=== PATIENT | male | born 1940 | race Caucasian/White ===

== ENCOUNTER 2018-02-22 09:38 | Day surgery (SDC) | payer MEDICARE, OTHER ==
[2018-02-17 09:14] VITALS: BMI 32.2
--- NOTE | 2018-02-21 10:11 | HP ---
HISTORY AND PHYSICAL CHIEF COMPLAINT: Right wrist pain. HISTORY OF PRESENT ILLNESS: The patient is a 77-year-old, left-hand dominant, retired male who presents with right wrist pain after an injury on February 14, 2018. He fell off a stepladder at home while cleaning his garage roof. He had no loss of consciousness. Initially, he was seen in the emergency room and placed in a splint. He denies previous injury. PAST MEDICAL HISTORY: Significant for anxiety, type 2 diabetes, reflux disease, hypercholesterolemia, arthritis, and prostate cancer. PAST SURGICAL HISTORY: Significant for hernia repair and colonoscopy. CURRENT MEDICATIONS: Aleve, aspirin, atorvastatin, Flomax, Glucotrol, Inderal, losartan, Prilosec, Xanax. ALLERGIES: SULFA. FAMILY HISTORY: Significant for cancer. SOCIAL HISTORY: Negative for current tobacco or alcohol use. REVIEW OF SYSTEMS: Sixteen point review of systems otherwise reviewed and is noncontributory. PHYSICAL EXAMINATION: On examination, the patient is approximately 5 foot 9, 218 pounds of endomorphic habitus. HEENT exam is nonfocal. Neck is supple. He is nontender about the right shoulder and elbow. He has full pronation and supination of the right forearm. On examination of the right wrist, he has moderate dorsal swelling. He is tender over the distal radius. He is nontender in the snuffbox. He has moderate digital stiffness. Light touch is distally intact. X-rays to include multiple views of the right wrist brought in with the patient show an extra-articular distal radius fracture with moderate dorsal angulation and comminution. IMPRESSION: 1. Right extra-articular distal radius fracture. 2. [id number]-xluzuulfg diabetes. RECOMMENDATIONS: I talked to the patient and his at length regarding his condition and treatment options. At this point, with the amount of initial angulation and comminution, I recommend proceeding with surgery. We will plan to proceed with open reduction and internal fixation of his right distal radius fracture. We will likely keep the patient for a 23-hour hold postoperatively. Risks and benefits were discussed at length in layman's terms. MMODL / IJN: [id number] /
[~2018-02-22 09:38] MED LIST: DEXAMETHASONE SOD PHOSPHATE 10 MG/ML 1 ML VIAL IV ONE; HYDROmorphone 0.5 MG/0.5 ML SYRINGE IVP PRN; LIDOCAINE 1% 20 ML VIAL (10MG/ML) FOR IV START INTRADERMA PRN; MIDAZOLAM 2 MG/2 ML VIAL IV PRN; ONDANSETRON ODT 4 MG TAB PO ONE; SCOPOLAMINE 1.5MG/72HR PATCH TRANSDERM ONE; ceFAZolin IN SWFI 2 GM/20 ML SYRINGE IVP ONE
[2018-02-22] MEDS: LACTATED RINGERS 1,000 ML IV SCH (11:13)
[2018-02-22] MEDS ORDERED: ONDANSETRON 4 MG/2 ML VIAL IVP ONE (11:26)
[2018-02-22] MEDS ORDERED: BUPIVACAINE (PF) 0.25% 30 ML VIAL SQ ONE (11:38)
[2018-02-22 11:46] LABS: Glucose,Whole Blood 136 mg/dL (75-99)
[2018-02-22] MEDS ORDERED: ePHEDrine SULFATE/0.9% NACL/PF 50 MG/5 ML SYRINGE IV ONE (11:55)
[2018-02-22] MEDS ORDERED: fentaNYL (PF) 50 MCG/ML 2 ML AMP ONE (11:55)
[2018-02-22] MEDS ORDERED: MIDAZOLAM 2 MG/2 ML VIAL ONE (11:55)
[2018-02-22] MEDS ORDERED: SUCCINYLCHOLINE CHLORIDE 100 MG/5 ML SYR IV ONE (11:55)
[2018-02-22] MEDS ORDERED: LIDOCAINE 1% INJ 10MG/ML (20 ML MDV) ONE (11:55)
[2018-02-22] MEDS ORDERED: PROPOFOL 10 MG/ML 20 ML VIAL IV ONE (11:55)
[2018-02-22] MEDS ORDERED: ceFAZolin 1,000 MG in SODIUM CHLORIDE 0.9% 1,000 ML IRRIGATION ONE (12:22)
[2018-02-22] MEDS ORDERED: ONDANSETRON 4 MG/2 ML VIAL IVP PRN (13:32)
[2018-02-22] MEDS ORDERED: MORPHINE SULFATE 4 MG/ML SYRINGE IV PRN ×3 (13:32)
--- NOTE | 2018-02-22 13:39 | P.OP ---
Date of Procedure: 02/22/18 Preoperative Diagnosis: Right displaced extra-articular distal radius fracture Postoperative Diagnosis: Same Procedure(s) Performed: Open reduction and internal fixation right displaced extra-articular distal radius fracture Implants: [employer] wide volar distal radial plate Anesthesia: JESSIE Surgeon: Eliu Khan Electronic Transaction Implementer #1: Heriberto Medina Estimated Blood Loss (ml): 10 Pathology: none sent Condition: stable Disposition: PACU Indications for Procedure: The patient's a 77-year-old male who presents with with a displaced/angulated right extra-articular distal radius fracture after a recent fall. A discussion of the risks and benefits of operative intervention was made with patient. He opted to proceed with surgery. Operative risks to include infection, neurovascular injury, development of blood clots, possible development of nonunion, possible development of malunion and need for subsequent procedures was discussed. Informed consent was obtained. Operative Findings: As below Description of Procedure: The patient was brought to the operating room, and after induction of general anesthesia the right upper extremity was prepped and draped in normal fashion. The tourniquet was inflated to 250 mmHg. A 6 cm incision was then made centered over the volar radial aspect of the right wrist over the flexor carpi radialis. The skin was incised sharply. Subcu change tissues were divided bluntly. Electrocautery was used for hemostasis. The FCR tendon sheath was opened and the tendon retracted ulnarly along with the radial artery retracted radially. The underlying fascia was opened. The contents the carpal canal were gently retracted ulnarly. The pronator quadratus was elevated subperiosteally off the volar aspect of the distal radius. The fracture site was identified and cleaned of clot and debris. Fracture was reduced with longitudinal traction and maybe ablation. A wide volar plate was then provisionally attached to the distal radius with an awl a wide. Position was checked with fluoroscopy. The slotted hole was then filled with a 2.4 mm cortical screws the appropriate length. The distal row was then placed with the appropriate length smooth locking pegs. This was verified with fluoroscopy. The proximal row was filled in a similar fashion. The remaining cortical screw holes were filled in the plate proximally. Final fluoroscopic views to include AP, PA, and elevated lateral view showed adequate reduction the fracture and placement of the implant. The wound was irrigated with normal saline. The subcutaneous tissues were reapproximated with interrupted 3-0 Vicryl suture. I deflated the tourniquet with approximately 1 hour total tourniquet time. The skin was 3-0 subcuticular Prolene suture. Steri-Strips were applied. A sterile dressing was applied in addition to a volar splint. The patient was then awoken from general anesthesia and transferred to recovery room in good condition. Blood loss was estimated at 10 mL. No complications were incurred. Sponge and needle counts were correct at the end the case.
[2018-02-22] MEDS: MORPHINE SULFATE 2 MG/ML SYRINGE IV PRN ×4 (13:50→14:14)
[2018-02-22 14:00] LABS: Glucose,Whole Blood 134 mg/dL (75-99)
[2018-02-22] MEDS: fentaNYL (PF) 50 MCG/ML 2 ML AMP IVP ONE ×4 (14:22→14:56)
--- NOTE | 2018-02-22 14:58 | FL ---
Fluoroscopy HISTORY: Wrist fracture 26 seconds fluoroscopy time supplied to the referring clinician. 2 intraoperative C-arm images docum ent the procedure. See dictated report from orthopedic surgery.
--- NOTE | 2018-02-22 14:59 | XR ---
Limited right wrist HISTORY: Open reduction internal fixation 2 intraoperative C-arm images document
--- NOTE | 2018-02-22 15:59 | P.CONS ---
History of Present Illness - History of Present Illness This is a pleasant 77 years old female with past medical history of DM, cancer, hyperlipidemia, hypertension, OA, restricted disorder, skin cancer of the face and right ear who presents with right wrist pain after an injury on 02/14/2018 secondary to a fall at home , patient status post open reduction and internal fixation of distal radius fracture on 02/22/2018 Review of Systems 14 point system review were negative except was mentioned in the HPI Past Medical History Past Medical History: Cancer, Diabetes Mellitus, Hearing Disorder / Deafness, Hyperlipidemia, Hypertension, Osteoarthritis (OA), Prostate Disorder, Skin Disorder Additional Past Medical History / Comment(s): Hx skin cancer on face and right ear. Enlarged prostate, skin tags. History of Any Multi-Drug Resistant Organisms: None Reported Past Surgical History: Hernia Repair Additional Past Surgical History / Comment(s): Skin cancer removed from face and right ear. Past Anesthesia/Blood Transfusion Reactions: No Reported Reaction Past Psychological History: Anxiety Smoking Status: Never smoker Past Alcohol Use History: Occasional Past Drug Use History: None Reported - Past Family History Mother Family Medical History: Cancer Additional Family Medical History / Comment(s): Lung and bone cancer Medications and Allergies Home Medications Medication Instructions Recorded Confirmed Type ALPRAZolam [Xanax] 0.25 mg PO DAILY PRN 02/17/18 02/22/18 History Aspirin [Adult Low Dose Aspirin EC] 81 mg PO DAILY 02/17/18 02/17/18 History Atorvastatin [Lipitor] 10 mg PO HS 02/17/18 02/22/18 History Co Q-10 (Unknown Dose) 1 tab PO DAILY 02/17/18 02/17/18 History Losartan [Cozaar] 25 mg PO DAILY 02/17/18 02/22/18 History Meclizine [Antivert] 25 mg PO TID PRN 02/17/18 02/22/18 History [place]-3 Fatty Acids [[place]-3] 1,000 mg PO DAILY 02/17/18 02/17/18 History Omeprazole 20 mg PO DAILY PRN 02/17/18 02/22/18 History Pioglitazone [Actos] 15 mg PO DAILY 02/17/18 02/22/18 History Propranolol [Inderal] 40 mg PO DAILY 02/17/18 02/22/18 History Tamsulosin [Flomax] 0.4 mg PO DAILY 02/17/18 02/22/18 History glipiZIDE [Glucotrol] 2.5 mg PO DAILY 02/17/18 02/22/18 History Allergies Allergy/AdvReac Type Severity Reaction Status Date / Time Sulfa (Sulfonamide Allergy Itching Verified 02/17/18 09:14 Antibiotics) Physical Exam Vitals: Vital Signs Temp Pulse Pulse Resp BP BP Pulse Ox 02/22/18 15:10 62 16 141/87 97 02/22/18 14:55 56 L 16 143/78 99 02/22/18 14:40 54 L 16 146/92 91 L 02/22/18 14:25 67 16 148/94 94 L 02/22/18 14:10 62 16 140/75 93 L 02/22/18 13:55 65 16 137/77 93 L 02/22/18 13:39 97.1 F L 70 14 152/75 94 L 02/22/18 11:21 97.5 F L 65 16 169/89 98 Intake and Output 02/22/18 02/22/18 02/22/18 06:59 14:59 22:59 Intake Total 901 Output Total 10 Balance 891 Intake: IV 901 Output: Estimated Blood Loss 10 Constitutional: No acute distress, conversant, pleasant Eyes: Anicteric sclerae, moist conjunctiva, no lid-lag PERRLA ENMT: NC/AT Oropharynx clear, no erythema, exudates Neck: Supple, FROM, no masses, or JVD No carotid bruits No thyromegaly Lungs: Clear to auscultation Clear to percussion Normal respiratory effort, no accessory muscle use Cardiovascular: Heart regular in rate and rhythm, No murmurs, gallops, or rubs No peripheral edema Abdominal: Soft Nontender, no guarding, rebound or rigidity Abdomen moving with respiration Normoactive bowel sounds No hepatomegaly, No splenomegaly No palpable mass No abdominal wall hernia noted Skin: Normal temperature, tone, texture, turgor No induration No subcutaneous nodules No rash, lesions No ulcers Extremities: No digital cyanosis No clubbing Pedal pulses intact and symmetrical Radial pulses intact and symmetrical Normal gait and station No calf tenderness Right hand and wrist in a dressing, we defer the examination to the surgical team Psychiatric: Alert and oriented to person, place and time Appropriate affect Intact judgement Neuro: Muscles Strength 5/5 in all 4 extremities Sensation to light touch grossly present throughout Cranial nerves II-XII grossly intact No focal sensory deficits Results Labs: Abnormal Lab Results - Last 24 Hours (Table) 02/22/18 02/22/18 Range/Units 11:24 13:58 POC Glucose (mg/dL) 136 H 134 H (75-99) mg/dL Assessment and Plan Assessment: Right wrist injury status post open reduction and internal fixation of the right radius on 02/22/2018 Hypertension Diabetes Hyperlipidemia Plan: Patient was lying in bed in no distress, is status post ORIF of left radial bone fracture line he has past medical history of DM, hypertension, hyperlipidemia. Continue with the same medication of starting beta lucretia low Zartan, continue with same diabetes medications glipizide and metformin Continue with LSA medication GI prophylaxis on omeprazole DVT prophylaxis patient is mobile, has Rohan in both sides, we leave this to the surgical team for evaluation , d/w staff Recommendation follow up with his PCP in one week after discharge Thank you for giving us the chance care of this patient, please feel free to contact us for any further question or clarification
[2018-02-22] MEDS: ceFAZolin IN SWFI 2 GM/20 ML SYRINGE IVP SCH (17:13)
[2018-02-22] MEDS: HYDROcodone/APAP 5-325MG 1 EACH TAB PO PRN ×2 (17:17→22:17)
[2018-02-22] MEDS ORDERED: MECLIZINE 25 MG TAB PO PRN (20:56)
[2018-02-22] MEDS ORDERED: ALPRAZolam 0.25 MG TAB PO PRN (20:56)
[2018-02-22] MEDS ORDERED: PANTOPRAZOLE 40 MG TABLET PO PRN (20:56)
[2018-02-22] MEDS ORDERED: ATORVASTATIN 10 MG TAB PO SCH (21:00)
[2018-02-22 22:41] VITALS: RESP 16
[2018-02-23] MEDS: ceFAZolin IN SWFI 2 GM/20 ML SYRINGE IVP SCH (01:45)
[2018-02-23] MEDS: HYDROcodone/APAP 5-325MG 1 EACH TAB PO PRN ×2 (04:51→11:01)
[2018-02-23] MEDS: LACTATED RINGERS 1,000 ML IV SCH (04:53)
[2018-02-23 05:58] VITALS: BP 149/87; PULSE 70; TEMP 98.3
[2018-02-23 07:10] LABS: Glucose,Whole Blood 142 mg/dL (75-99)
[2018-02-23] MEDS ORDERED: INSULIN ASPART 100 UNIT/ML 1 ML 10 ML VIAL SQ SCH (07:30)
[2018-02-23] MEDS ORDERED: MORPHINE ORAL SOLN 10 MG/5 ML CUP PO PRN ×3 (08:09→08:10)
[2018-02-23] MEDS ORDERED: LOSARTAN 25 MG TAB PO SCH (09:00)
[2018-02-23] MEDS ORDERED: PIOGLITAZONE 15 MG TAB PO SCH (09:00)
[2018-02-23] MEDS ORDERED: OMEGA 3 1000MG PO SCH (09:00)
[2018-02-23] MEDS ORDERED: ASPIRIN 81 MG PO SCH (09:00)
[2018-02-23] MEDS ORDERED: PROPRANOLOL 40 MG TAB PO SCH (09:00)
[2018-02-23] MEDS ORDERED: TAMSULOSIN 0.4 MG CAP.ER.24H PO SCH ×2 (09:00→21:00)
--- NOTE | 2018-02-23 10:27 | P.PN ---
Subjective Progress Note Date: 02/23/18 Principal diagnosis: Status post ORIF right distal radius fracture Patient seen today resting in his hospital bed, he appears comfortable. He did have some increasing pain in the wrist throughout the night, this has improved. He denies any headaches, lightheadedness, chest pain or shortness of breath. Objective - Vital Signs Vital signs: Vital Signs Temp 98.3 F 02/23/18 05:57 Pulse 70 02/23/18 05:57 Resp 16 02/23/18 05:57 BP 149/87 02/23/18 05:57 Pulse Ox 96 02/23/18 05:57 Intake & Output 02/22/18 02/23/18 02/23/18 18:59 06:59 18:59 Intake Total 901 Output Total 10 Balance 891 Intake: IV 901 Output: Estimated Blood Loss 10 Other: # Voids 2 - Exam Right upper extremity: Postop splint is in good condition and position. Sensation to light touch both proximal distal to the splint is intact. Cap refill is less than 3 seconds. - Labs Labs: Abnormal Lab Results - Last 24 Hours (Table) 02/22/18 02/22/18 02/23/18 Range/Units 11:24 13:58 07:05 POC Glucose (mg/dL) 136 H 134 H 142 H (75-99) mg/dL Assessment and Plan Plan: Assessment: 1. Postop day 1 status post ORIF right distal radius fracture Plan: 1. Pain control, plan for discharge on oral medication 2. Splint instructions are discussed the patient 3. Ice and elevate off 4. Plan for [facility]up at [facility] 2 weeks Time with Patient: Less than 30
--- NOTE | 2018-02-23 10:36 | P.DS ---
Providers Date of admission: 02/22/2018 Expected date of discharge: 02/23/18 Attending physician: Eliu Khan Consults: 02/22/18 14:32 Consult Physician Routine Consulting Provider: David Rodriguez Consult Reason/Comments: medical managment Do you want consulting provider notified?: Yes Primary care physician: Vivinae Norton [facility] Course: Date of admission: 02/22/2018 Date of discharge: 02/23/2018 Admission diagnosis: Status post ORIF right distal radius fracture Discharge diagnosis: Same Attending physician: Dr. Khan Surgical procedures: Open reduction internal fixation right distal radius fracture Brief history: Patient is a 77-year-old male who was seen and evaluated in the outpatient setting by Dr. Khan for a injury to the right wrist. It was determined that surgical intervention would be needed, he was scheduled for surgery on 02/22/2018. Hospital course: Details of patient's surgery can be found in operative report. Patient tolerated the procedure well and was subsequently transported to orthopedic floor. Patient's orthopeidc and medical care was provided daily. Patient was noted to have a relatively uneventful postoperative course. Patient reported satisfactory pain control with oral pain medications by postoperative day 0. Patient showed satisfactory progress with physical therapy. Patient moved steadily through the program and had no difficulty meeting the goals by postoperative day 1. Given patient's otherwise satisfactory course and having met physical therapy goals, plan is to discharge patient home on postoperative day 1. Discharge condition/disposition: Patient will be discharged home in stable condition. Discharge medications: Instructions are given on resumption of patient's normal daily medications per primary care recommendation, in addition patient will be prescribed Wallace 5 mg/325 mg. Discharge instructions: 1. Wound care and infection precautions, keep incision dry and covered while showering, no lotions, creams, moisturizers. No soaking, tubs, pools, hottubs. Do not scrub over the incision. 2. Utilize arm sling as needed 3. Ice and elevate when necessary. Do not exceed 20 minutes per hour with ice pack. 4. Follow up in office at 2 weeks postop with Garfield Medina PA-C 5. Contact [facility] with any questions, . Procedures: Open reduction internal fixation right distal radius fracture Patient Condition at Discharge: Good Plan - Discharge Summary New Discharge Prescriptions: New Hydrocodone/Acetaminophen [[place] 5-325] 1 each PO Q6HR PRN #30 tab PRN Reason: Pain No Action Tamsulosin [Flomax] 0.4 mg PO DAILY ALPRAZolam [Xanax] 0.25 mg PO DAILY PRN PRN Reason: Anxiety Propranolol [Inderal] 40 mg PO DAILY Atorvastatin [Lipitor] 10 mg PO HS Pioglitazone [Actos] 15 mg PO DAILY Meclizine [Antivert] 25 mg PO TID PRN PRN Reason: Dizziness Losartan [Cozaar] 25 mg PO DAILY glipiZIDE [Glucotrol] 2.5 mg PO DAILY Omeprazole 20 mg PO DAILY PRN PRN Reason: Indigestion [place]-3 Fatty Acids [[place]-3] 1,000 mg PO DAILY Co Q-10 (Unknown Dose) 1 tab PO DAILY Aspirin [Adult Low Dose Aspirin EC] 81 mg PO DAILY Discharge Medication List ALPRAZolam [Xanax] 0.25 mg PO DAILY PRN 02/17/18 [History] Aspirin [Adult Low Dose Aspirin EC] 81 mg PO DAILY 02/17/18 [History] Atorvastatin [Lipitor] 10 mg PO HS 02/17/18 [History] Co Q-10 (Unknown Dose) 1 tab PO DAILY 02/17/18 [History] Losartan [Cozaar] 25 mg PO DAILY 02/17/18 [History] Meclizine [Antivert] 25 mg PO TID PRN 02/17/18 [History] [place]-3 Fatty Acids [[place]-3] 1,000 mg PO DAILY 02/17/18 [History] Omeprazole 20 mg PO DAILY PRN 02/17/18 [History] Pioglitazone [Actos] 15 mg PO DAILY 02/17/18 [History] Propranolol [Inderal] 40 mg PO DAILY 02/17/18 [History] Tamsulosin [Flomax] 0.4 mg PO DAILY 02/17/18 [History] glipiZIDE [Glucotrol] 2.5 mg PO DAILY 02/17/18 [History] Hydrocodone/Acetaminophen [[place] 5-325] 1 each PO Q6HR PRN #30 tab 02/23/18 [Rx] Follow up Appointment(s)/Referral(s): Heriberto Medina PAC [PHYSICIAN [employer]] - 2 Weeks Activity/Diet/Wound Care/Special Instructions: Discharge instructions: Resume home medications after discharge Pain medication as needed Keep splint clean and dry, keep covered while showering Ice and elevate [facility]-up at [facility] in 2 weeks Discharge Disposition: HOME SELF-CARE
[2018-02-23 18:48] LABS: Hemoglobin A1C 5.7 % (4.0-6.0)
== END 2018-02-23 11:43 | disposition home or self-care (01) ==
LOC: OR 09:38 → 4MS4W 13:24 → OR 02-23 11:43
PROVIDERS: ATTEND Orthopaedic Surgery
DX: S52.551A Other extraarticular fracture of lower end of right radius, initial encounter for closed fracture (principal); W11.XXXA Fall on and from ladder, initial encounter; Y93.H9 Activity, other involving exterior property and land maintenance, building and construction; Y92.008 Other place in unspecified non-institutional (private) residence as the place of occurrence of the external cause; I10 Essential (primary) hypertension; E11.9 Type 2 diabetes mellitus without complications; E78.00 Pure hypercholesterolemia, unspecified; F41.9 Anxiety disorder, unspecified; K21.9 Gastro-esophageal reflux disease without esophagitis; M19.90 Unspecified osteoarthritis, unspecified site; H91.90 Unspecified hearing loss, unspecified ear; N40.0 Benign prostatic hyperplasia without lower urinary tract symptoms; R25.1 Tremor, unspecified; Z85.46 Personal history of malignant neoplasm of prostate; Z85.828 Personal history of other malignant neoplasm of skin; Z79.84 Long term (current) use of oral hypoglycemic drugs; Z79.1 Long term (current) use of non-steroidal anti-inflammatories (NSAID); Z79.82 Long term (current) use of aspirin; Z79.899 Other long term (current) drug therapy; Z88.2 Allergy status to sulfonamides
CPT/HCPCS: 82306; 83036; 73100; 25607; C1713; J2250; J2270 ×2; J1100; J2405; J0690 ×3; J2001; J3010; J0330; J2704

== ENCOUNTER 2025-05-16 09:04 | Emergency (ER) | payer MEDICARE, OTHER ==
[2025-05-16 09:22] VITALS: TEMP 97.9
--- NOTE | 2025-05-16 09:52 | ED ---
Abdominal Pain HPI - General Chief Complaint: Abdominal Pain Stated Complaint: Abd pain/Nausea Time Seen by Provider: 05/16/25 09:23 Source: patient, RN notes reviewed Mode of arrival: ambulatory Limitations: no limitations - History of Present Illness Initial Comments: This is an 84-year-old male who presents to the emergency department for abdominal pain. Patient states that for the last 3 months he has been dealing with abdominal pain, nausea, and bloating. Also reports that he lost about 40 pounds. He went to [facility] ED on 04/06/[address] scan done demonstrating concern for pancreatic cancer. He followed up with general surgery yesterday and was advised that he needs hem/onc evaluation. The pain is currently controlled, however he states that it tends to flareup sporadically. He does also continue to be nauseous, has no appetite, and is unable to eat. He has taken Zofran for the nausea which does seem to help on occasions, however he has no sustained improvement. He has also been dealing with intermittent constipation, however this does seem to respond well to laxatives. MD Complaint: abdominal pain - Related Data Home Medications Medication Instructions Recorded Confirmed ALPRAZolam [Xanax] 0.25 mg PO DAILY PRN 02/17/18 07/23/23 Atorvastatin [Lipitor] 5 mg PO HS 02/17/18 07/23/23 Losartan [Cozaar] 12.5 mg PO QAM 02/17/18 07/23/23 Meclizine [Antivert] 25 mg PO TID PRN 02/17/18 07/23/23 Markesan-3 Fatty Acids [Markesan-3] 1,000 mg PO DAILY 02/17/18 07/23/23 Omeprazole 20 mg PO DAILY PRN 02/17/18 07/23/23 Pioglitazone [Actos] 15 mg PO HS 02/17/18 07/23/23 Propranolol [Inderal] 60 mg PO QAM 02/17/18 07/23/23 Tamsulosin [Flomax] 0.4 mg PO BID 02/17/18 07/23/23 Acetaminophen [Tylenol] 325 - 650 mg PO Q6H PRN 07/19/23 07/23/23 Cholecalciferol [Vitamin D3 (125 1 tab PO DAILY 07/19/23 07/23/23 Mcg = 5000 Iu)] Naproxen Sodium [Aleve] 220 - 440 mg PO Q6H PRN 07/19/23 07/23/23 Ubidecarenone [Co Q-10] 200 mg PO DAILY 07/19/23 07/23/23 Previous Rx's Medication Instructions Recorded Apixaban [Eliquis] 2.5 mg PO BID #60 tab 07/24/23 HYDROcodone/APAP 7.5-325MG [[place] 1 - 2 each PO Q6HR PRN #32 tab 07/24/23 7.5] Sennosides/Docusate Sodium [Senna 1 each PO DAILY #20 capsule 07/24/23 Plus 8.6-50 mg Softgel] Allergies Allergy/AdvReac Type Severity Reaction Status Date / Time Sulfa (Sulfonamide Allergy Itching Verified 07/23/23 09:00 Antibiotics) Review of Systems ROS Statement: Those systems with pertinent positive or pertinent negative responses have been documented in the HPI. ROS Other: All systems not noted in ROS Statement are negative. Past Medical History Past Medical History: Cancer, Diabetes Mellitus, Hearing Disorder / Deafness, Hyperlipidemia, Hypertension, Osteoarthritis (OA), Prostate Disorder, Skin Disorder Additional Past Medical History / Comment(s): Hx skin cancer on face and right ear. Enlarged prostate, skin tags. History of Any Multi-Drug Resistant Organisms: None Reported Past Surgical History: Hernia Repair Additional Past Surgical History / Comment(s): Skin cancer removed from face and right ear. Past Anesthesia/Blood Transfusion Reactions: No Reported Reaction Past Psychological History: Anxiety Smoking Status: Never smoker Past Alcohol Use History: Rare Past Drug Use History: None Reported - Past Family History Mother Family Medical History: Cancer Additional Family Medical History / Comment(s): Lung and bone cancer General Exam Limitations: no limitations General appearance: alert, in no apparent distress Head exam: Present: atraumatic, normocephalic, normal inspection Respiratory exam: Present: normal lung sounds bilaterally. Absent: respiratory distress, wheezes, rales, rhonchi, stridor Cardiovascular Exam: Present: regular rate, normal rhythm GI/Abdominal exam: Present: soft. Absent: distended, tenderness Neurological exam: Present: alert, oriented X3, CN II-XII intact Psychiatric exam: Present: normal affect, normal mood Skin exam: Present: warm, dry, intact, other (Jaundice) Course Vital Signs 05/16/25 05/16/25 05/16/25 09:14 10:24 13:52 Temperature 97.9 F Pulse Rate 56 L 51 L 50 L Respiratory 18 18 22 Rate Blood Pressure 114/67 121/69 120/71 O2 Sat by Pulse 98 97 95 Oximetry 05/16/25 05/16/25 05/16/25 17:09 20:15 22:47 Temperature Pulse Rate 60 68 65 Respiratory 20 18 16 Rate Blood Pressure 119/64 110/88 118/75 O2 Sat by Pulse 99 96 97 Oximetry Medical Decision Making - Medical Decision Making This is an 84-year-old male who presents to the emergency department for abdominal pain and nausea. Was pt. sent in by a medical professional or institution? @ -No Did you speak to anyone other than the patient for history? @ -No Did you review nursing and triage notes? @ -Yes, and I agree, it is accurate with regards to the patient's symptoms. Were old charts reviewed? @ -No Differential Diagnosis? @ -Differential Abdominal Pain Men: Appendicitis, cholecystitis, diverticulosis, ischemic bowel, pancreatitis, hepatitis, UTI, gastroenteritis, AAA, incarcerated hernia, bowel obstruction, constipation, inflammatory bowel, hepatitis, peptic ulcer disease, splenic infarction, perforated viscus, testicular torsion, this is not meant to be an all-inclusive list EKG interpreted by me (3pts min.)? @ -EKG interpreted by me demonstrating the following: Sinus bradycardia. Ventricular rate 47 bpm, NC interval 155 ms, QRS duration 130 ms, QTc 429 ms. X-rays interpreted by me (1pt min.)? @ -Not obtained CT interpreted by me (1pt min.)? @ -CT scan of the abdomen and pelvis obtained. My interpretation identifies irregularity around the pancreatic head. U/S interpreted by me (1pt. min.)? @ -Gallbladder ultrasound obtained. My interpretation identifies a pancreatic head mass. What testing was considered but not performed? (CT, X-rays, U/S, labs)? Why? @ -None What meds were considered but not given? Why? @ -None Did you discuss the management of the patient with other professionals? @ -Yes, Dr. Hernandez, general surgery, who advised a repeat CT scan with IV contrast. Dr. Zapien, health center manager at [facility] accepts the patient for direct admission transfer. Did you reconcile home meds? @ -No Was smoking cessation discussed for >3mins.? @ -No Was critical care preformed (if so, how long)? @ -No Were there social determinants of health that impacted care today? How? (Homelessness, low income, unemployed, alcoholism, drug addiction, transportation, low edu. Level, literacy, decrease access to med. care, fpc, rehab)? @ -No Was there de-escalation of care discussed even if they declined? (Discuss DNR or withdrawal of care, Hospice)? @ -No What co-morbidities impacted this encounter? (DM, HTN, Smoking, COPD, CAD, Cancer, CVA, Hep., AIDS, mental health diagnosis, sleep apnea, morbid obesity)? @ -DM, HLD, HTN Was patient admitted / discharged? @ -Transferred. Lab work demonstrates elevated liver enzymes with a bilirubin of 4.8, AST of 432 and ALT of 468. Alkaline phosphatase 267. Patient was advised to come to the emergency department by general surgery. General surgery called the department when the patient arrived and advised a repeat CT scan with IV contrast this time. CT scan demonstrates some hypodensity with ill-defined margins within the head of the pancreas. There are also some lobular density changes along the hepatic border within the gallbladder and the border is indistinct. They advised that a gallbladder wall neoplasm should be considered and an ultrasound was advised. Of note he is also noted to have left ureteral stones without significant hydronephrosis or hydroureter. Gallbladder ultrasoun d obtained demonstrating a 3.5 cm pancreatic head mass with a dilated bile duct at 1.3 cm likely contributing to biliary obstruction. There are also lesions in the right hepatic dome that are concerning for metastatic disease. He is also noted to have multiple gallstones and mild wall thickening that could reflect chronic cholecystitis. Patient will require evaluation by a GI specialist, which we do not have available at our facility. [facility] was contacted and they accepted the patient for transfer. Patient transferred to [facility] via EMS as direct admission. Dr. Zapien is the accepting provider. Case discussed with ED attending, Dr. Wu. Undiagnosed new problem with uncertain prognosis? @ -None Drug Therapy requiring intensive monitoring for toxicity (Heparin, Nitro, Insulin, Cardizem)? @ -None Were any procedures done? @ -None Diagnosis/symptom? @ -Pancreatic head mass, biliary obstruction Acute, or Chronic, or Acute on Chronic? @ -Acute Uncomplicated (without systemic symptoms) or Complicated (systemic symptoms)? @ -Complicated Side effects of treatment? @ -None Exacerbation, Progression, or Severe Exacerbation] @ -Not applicable Poses a threat to life or bodily function? @ -Yes, further progression of suspected malignancy can be fatal - Lab Data Result diagrams: 05/16/25 10:52 05/16/25 10:52 Lab Results 05/16/25 05/16/25 05/16/25 Range/Units 10:52 10:52 10:52 WBC 5.88 (4.50-10.00) 10*3/uL RBC 4.35 L (4.40-5.60) 10*6/uL Hgb 13.4 (13.0-17.0) g/dL Hct 39.9 (39.6-50.0) % MCV 91.7 (80.0-97.0) fL MCH 30.8 (27.0-32.0) pg MCHC 33.6 (32.0-37.0) g/dL Plt Count 169 (140-440) 10*3/uL MPV 10.1 (9.5-12.2) fL Immature Gran % (Auto) 0.3 % Neutrophils % 76.2 % Lymphocytes % 10.2 % Monocytes % 10.5 % Eosinophils % 1.9 % Basophils % 0.9 % Immature Gran # 0.02 (0.00-0.04) 10*3/uL Neutrophils # 4.48 (1.80-7.70) 10*3/uL Lymphocytes # 0.60 L (0.90-5.00) 10*3/uL Monocytes # 0.62 (0.20-1.00) 10*3/uL Eosinophils # 0.11 (0.04-0.35) 10*3/uL Basophils # 0.05 (0.00-0.10) 10*3/uL PT 12.1 (10.0-12.5) sec INR 1.1 (<1.2) APTT 24.2 (22.0-30.0) sec Sodium (137-145) mmol/L Potassium (3.5-5.1) mmol/L Chloride (98-107) mmol/L Carbon Dioxide (22-30) mmol/L Anion Gap mmol/L BUN (9-20) mg/dL Creatinine (0.66-1.25) mg/dL Est GFR (CKD-EPI)AfAm (>60 ml/min/1.73 sqM) Est GFR (CKD-EPI)NonAf (>60 ml/min/1.73 sqM) Glucose (74-99) mg/dL Plasma Lactic Acid Riley (0.7-2.0) mmol/L Calcium (8.4-10.2) mg/dL Magnesium (1.6-2.3) mg/dL Total Bilirubin (0.2-1.3) mg/dL Conjugated Bilirubin (0.0-0.3) mg/dL Unconjugated Bilirubin (0.0-1.1) mg/dL Delta Bilirubin (0.0-0.2) mg/dL AST (17-59) U/L ALT (4-49) U/L Alkaline Phosphatase (38-126) U/L Total Protein (6.3-8.2) g/dL Albumin (3.5-5.0) g/dL Amylase (30-110) U/L Lipase (23-300) U/L Urine Color Yellow Urine Appearance Clear (Clear) Urine pH 6.0 (5.0-8.0) Ur Specific [place] 1.012 (1.001-1.035) Urine Protein Negative (Negative) Urine Glucose (UA) Negative (Negative) Urine Ketones 1+ H (Negative) Urine Blood Trace H (Negative) Urine Nitrite Negative (Negative) Urine Bilirubin 1+ H (Negative) Urine Urobilinogen 6.0 (<2.0) mg/dL Ur Leukocyte Esterase Negative (Negative) Urine RBC 7 H (0-5) /hpf Urine WBC 4 (0-5) /hpf Calcium Oxalate Crystal Occasional H (None) /hpf Urine Mucus Rare H (None) /hpf 05/16/25 05/16/25 05/16/25 Range/Units 10:52 10:52 13:33 WBC (4.50-10.00) 10*3/uL RBC (4.40-5.60) 10*6/uL Hgb (13.0-17.0) g/dL Hct (39.6-50.0) % MCV (80.0-97.0) fL MCH (27.0-32.0) pg MCHC (32.0-37.0) g/dL Plt Count (140-440) 10*3/uL MPV (9.5-12.2) fL Immature Gran % (Auto) % Neutrophils % % Lymphocytes % % Monocytes % % Eosinophils % % Basophils % % Immature Gran # (0.00-0.04) 10*3/uL Neutrophils # (1.80-7.70) 10*3/uL Lymphocytes # (0.90-5.00) 10*3/uL Monocytes # (0.20-1.00) 10*3/uL Eosinophils # (0.04-0.35) 10*3/uL Basophils # (0.00-0.10) 10*3/uL PT (10.0-12.5) sec INR (<1.2) APTT (22.0-30.0) sec Sodium 136 L (137-145) mmol/L Potassium 4.2 (3.5-5.1) mmol/L Chloride 101 (98-107) mmol/L Carbon Dioxide 27 (22-30) mmol/L Anion Gap 8 mmol/L BUN 14 (9-20) mg/dL Creatinine 0.76 (0.66-1.25) mg/dL Est GFR (CKD-EPI)AfAm >90 (>60 ml/min/1.73 sqM) Est GFR (CKD-EPI)NonAf 85 (>60 ml/min/1.73 sqM) Glucose 124 H (74-99) mg/dL Plasma Lactic Acid Riley 0.7 (0.7-2.0) mmol/L Calcium 9.3 (8.4-10.2) mg/dL Magnesium 1.8 (1.6-2.3) mg/dL Total Bilirubin 4.8 H 4.7 H (0.2-1.3) mg/dL Conjugated Bilirubin 2.0 H (0.0-0.3) mg/dL Unconjugated Bilirubin 1.5 H (0.0-1.1) mg/dL Delta Bilirubin 1.2 H (0.0-0.2) mg/dL AST 432 H (17-59) U/L ALT 468 H (4-49) U/L Alkaline Phosphatase 267 H (38-126) U/L Total Protein 6.6 (6.3-8.2) g/dL Albumin 3.8 (3.5-5.0) g/dL Amylase 55 (30-110) U/L Lipase 303 H (23-300) U/L Urine Color Urine Appearance (Clear) Urine pH (5.0-8.0) Ur Specific [place] (1.001-1.035) Urine Protein (Negative) Urine Glucose (UA) (Negative) Urine Ketones (Negative) Urine Blood (Negative) Urine Nitrite (Negative) Urine Bilirubin (Negative) Urine Urobilinogen (<2.0) mg/dL Ur Leukocyte Esterase (Negative) Urine RBC (0-5) /hpf Urine WBC (0-5) /hpf Calcium Oxalate Crystal (None) /hpf Urine Mucus (None) /hpf - Radiology Data Radiology results: report reviewed, image reviewed Disposition Clinical Impression: Mass of head of pancreas, Biliary obstruction Disposition: OTHER INSTITUTION NOT DEFINED Referrals: Viviane Norton MD [Primary Care Provider] - 1-2 days - Out of Hospital Transfer - Req. Specs Out of Hospital Transfer - Requested Specifics: Other Non-Acute ([facility])
[2025-05-16] MEDS: PANTOPRAZOLE 40 MG/10 ML VIAL IVP STA (10:54)
[2025-05-16] MEDS: SODIUM CHLORIDE 0.9% 500 ML 500 ML IV ONE (10:54)
[2025-05-16] MEDS: ONDANSETRON 4 MG/2 ML VIAL IVP STA (10:54)
[2025-05-16 11:05] LABS: Basophils # (A) 0.05 10*3/uL (0.00-0.10); Basophils % (A) 0.9 %; Eosinophils # (A) 0.11 10*3/uL (0.04-0.35); Eosinophils % (A) 1.9 %; HCT 39.9 % (39.6-50.0); HGB 13.4 g/dL (13.0-17.0); Lymphocytes # (A) 0.60 10*3/uL (0.90-5.00); Lymphocytes % (A) 10.2 %; MCH 30.8 pg (27.0-32.0); MCHC 33.6 g/dL (32.0-37.0); MCV 91.7 fL (80.0-97.0); Monocytes # (A) 0.62 10*3/uL (0.20-1.00); Monocytes % (A) 10.5 %; Neutrophils # (A) 4.48 10*3/uL (1.80-7.70); Neutrophils % (A) 76.2 %; Platelet Count 169 10*3/uL (140-440); RBC 4.35 10*6/uL (4.40-5.60); RDW 14.1 % (11.5-14.5); WBC 5.88 10*3/uL (4.50-10.00)
[2025-05-16 11:18] LABS: Bilirubin,Urine 1+ (Negative); Blood,Urine Trace (Negative); Calcium Oxalate Crystals,Urine Occasional /hpf; Color,Urine Yellow; Glucose,Urine (UA) Negative (Negative); INR 1.1 (<1.2); Ketones,Urine 1+ (Negative); Leukocyte Esterase,Urine Negative (Negative); Mucus,Urine Rare /hpf; Nitrite,Urine Negative (Negative); PH, Urine 6.0 (5.0-8.0); Partial Thromboplastin Time 24.2 sec (22.0-30.0); Protein,Urine Negative (Negative); Prothrombin Time 12.1 sec (10.0-12.5); RBC,Urine 7 /hpf (0-5); Specific Gravity,Urine 1.012 (1.001-1.035); Urobilinogen,Urine 6.0 mg/dL (<2.0); WBC,Urine 4 /hpf (0-5)
[2025-05-16 11:19] LABS: ALT 468 U/L (4-49); AST 432 U/L (17-59); African American GFR (CKD) >90 (>60 ml/min/1.73 sqM); Albumin 3.8 g/dL (3.5-5.0); Alkaline Phosphatase 267 U/L (38-126); Amylase 55 U/L (30-110); Anion Gap 8 mmol/L; Blood Urea Nitrogen 14 mg/dL (9-20); Calcium 9.3 mg/dL (8.4-10.2); Carbon Dioxide 27 mmol/L (22-30); Chloride 101 mmol/L (98-107); Glucose 124 mg/dL (74-99); Lipase 303 U/L (23-300); Magnesium 1.8 mg/dL (1.6-2.3); Non-African American GFR(CKD) 85 (>60 ml/min/1.73 sqM); Potassium 4.2 mmol/L (3.5-5.1); Sodium 136 mmol/L (137-145); Total Protein 6.6 g/dL (6.3-8.2)
--- NOTE | 2025-05-16 12:40 | CT ---
EXAMINATION TYPE: CT abdomen pelvis w con DATE OF EXAM: 05/16/2025 11:49 AM COMPARISON: None. CLINICAL INDICATION: Male, 84 years old with history of Abdominal pain, concern for pancreatic malign paulie, ABD PAIN, CONCERN FOR PANCREATIC MALIGNANCY TECHNIQUE: Axial images were obtained from above the diaphragm to the pubic rami in the axial plane a t 5 mm thick sections. Reconstructed images are reviewed on the computer in the coronal plane. CONTRAST: 100 mL of Isovue 300. Study performed without Oral Contrast DLP: 1138.8 mGycm, Automated exposure control for dose reduction was used. FINDINGS: Limited CT sections are obtained the lung bases. The lung bases are clear. CT ABDOMEN: Liver: There is mild diffuse fatty change liver. Couple of small hepatic cysts are likely present. Th ere is a somewhat lobular border with the gallbladder with change in the hepatic density additional e valuation with ultrasound is recommended. This could be related to focal fatty sparing. Gallbladder N eoplasm however should be considered. Spleen: Normal Pancreas: Attention is paid to the pancreas. Body and tail of the pancreas appears normal. There is s ome ill-defined hypodensity near the head of the pancreas and uncinate process. This may be confluent with periaortic and retrocaval matted adenopathy in this region. Large retrocrural adenopathy is gibson dent. Some pre-inferior vena cava adenopathy near the iliacs may be present. Adrenal glands: The adrenal glands are normal. Gallbladder: Normal Kidneys: There is a 0.6 cm calcification in the proximal left ureter. No significant hydronephrosis i s identified. A 0.5 cm distal left ureteral stone may be present. No masses are evident. No hydroneph rosis is present. No cysts are present. Delayed images were obtained through the kidneys, which re main unremarkable. Aorta: Vascular calcification is within the aorta. Inferior vena cava: Normal. CT PELVIS: Sigmoid colon contains multiple diverticuli without evidence of acute diverticulitis. Additional scat tered diverticula within the descending colon region. The study is without oral contrast limiting bow el evaluation. Appendix: Normal as visualized. Urinary bladder: There is a 0.4 cm calcification in the left posterior lateral dependent urinary blad deanna. No hydroureter is evident. Larger central urinary bladder calcifications are present. There may be a distal left ureteral calcification present. No hydronephrosis or hydroureter. Genitourinary structures: There is a very prominent prostate. Osseous structures: No suspicious lytic or sclerotic lesions. There is a right hip prosthesis. Facet degenerative changes are lower lumbar spine. IMPRESSION: 1. Proximal unsuspected distal left ureteral stones without significant hydronephrosis or hydrourete r. There are multiple urinary bladder calcifications present. 2. Diverticulosis without acute diverticulitis. 3. Prominent prostatic hypertrophy. 4. There is some lobular density change along the hepatic border with the gallbladder. The border is indistinct. Gallbladder wall neoplasm and focal fatty sparing at the liver are within the differentia l. Additional evaluation with ultrasound recommended. 5. There is some hypodensity with ill-defined margins within the head of the pancreas and uncinate pr ocess. This may have communication with the prominent adenoid adenopathy in the periaortic and retroc aval regions extending from the celiac axis to the aortic bifurcation levels. Additional workup recom mended for neoplasm [facility], , 05/16/2025 12:38 PM
--- NOTE | 2025-05-16 13:46 | US ---
EXAMINATION TYPE: US gallbladder DATE OF EXAM: 05/16/2025 COMPARISON: CT same day CLINICAL INDICATION: Male, 84 years old with history of Abdominal pain; Pain TECHNIQUE: Grayscale and color Doppler imaging of the right upper quadrant was performed. FINDINGS: EXAM MEASUREMENTS: Liver Length: 15.8 cm Gallbladder Wall: 0.4 cm CBD: 1.3 cm Right Kidney: 11.9 x 5.3 x 4.7 cm Pancreas: Ill-defined, hypoechoic area at level of head of pancreas= 3.5 x 2.6 x 2.8 cm Liver: Difficult to penetrate. Small hypoechoic lesion near right hepatic dome= 1.7 x 1.5 x 1.7 cm. There is posterior through transmission. A second hypoechoic lesion adjacent to gallbladder as seen o n CT measures 1.6 x 1.6 x 2.0 cm. Again there is posterior through transmission. Mild intrahepatic du ctal dilatation Gallbladder: Multiple gallstones measuring up to 1.7 cm. The gallbladder wall is mildly thickened. N o hydropic change or surrounding fluid. Evidence for sonographic Allred's sign: No CBD: Dilated Right Kidney: wnl IMPRESSION: 1. 3.5 cm pancreatic head mass with a dilated bile duct at 1.3 cm. Likely contributing to biliary obs truction. 2. A right hepatic dome lesion and a similar lesion in the right liver lobe adjacent to the gallbladd er. These measure 1.7 cm and 2.0 cm, respectively. Both are viewed with some suspicion for metastatic disease. MRI may be able to further characterize based on enhancement characteristics. 3. Multiple gallstones measuring up to 1.7 cm. Mild gallbladder wall thickening is nonspecific and co uld reflect chronic cholecystitis. There is no hydropic change to clearly indicate acute cholecystiti s at this time. 4. Diffuse retroperitoneal adenopathy on the patient's CT not seen by ultrasound. [facility], , 05/16/2025 1:43 PM
[2025-05-16] MEDS: METOCLOPRAMIDE 5 MG/ML 2 ML VIAL IVP STA (13:47)
[2025-05-16 13:59] LABS: Bilirubin, Delta 1.2 mg/dL (0.0-0.2); Bilirubin,Unconjugated 1.5 mg/dL (0.0-1.1)
[2025-05-16] MEDS ORDERED: MORPHINE SULFATE 4 MG/ML SYRINGE IV PRN (17:15)
[2025-05-16] MEDS ORDERED: ONDANSETRON 4 MG/2 ML VIAL IVP PRN (17:15)
[2025-05-16] MEDS ORDERED: ACETAMINOPHEN TAB 325 MG TAB PO PRN (17:15)
[2025-05-16] MEDS ORDERED: NALOXONE 0.4 MG/ML 1 ML VIAL IV PRN (17:15)
[2025-05-16] MEDS ORDERED: HYDROcodone/APAP 5-325MG 1 EACH TAB PO PRN (17:15)
[2025-05-16] MEDS ORDERED: METOCLOPRAMIDE 5 MG/ML 2 ML VIAL IVP PRN (17:16)
[2025-05-16 22:49] VITALS: BP 118/75; PULSE 65; RESP 16
[2025-05-17] MEDS ORDERED: PANTOPRAZOLE 40 MG/10 ML VIAL IV SCH (09:00)
== END 2025-05-16 23:46 | disposition other institution (70) ==
LOC: EC 09:04
DX: K83.1 Obstruction of bile duct (principal); R22.0 Localized swelling, mass and lump, head; C25.0 Malignant neoplasm of head of pancreas; E11.9 Type 2 diabetes mellitus without complications; E78.5 Hyperlipidemia, unspecified; I10 Essential (primary) hypertension; Z79.84 Long term (current) use of oral hypoglycemic drugs; Z88.2 Allergy status to sulfonamides
CPT/HCPCS: 36415; 80053; 82150; 82248; 83605; 83690; 83735; 85025; 85610; 85730; 81001; 76705; 74177; 99285; 96374; 96375; 96361; J2765; J2405; Q9967; J2470